=== PATIENT | female | born 1950 | race Caucasian/White ===

== ENCOUNTER 2022-04-08 14:52 | Outpatient (CLI) | payer MEDICARE, OTHER, SELFPAY ==
--- NOTE | 2022-04-08 16:00 | USCV_ITS ---
Rosaura Hodges Age: 71 Gender: F : 1950 Exam Date: 04/08/2022 15:22 Ordering Phys: Denise Amin Technologist: Mildred Bazan Exam Location: [facility] [place] Indication: CAD, pre op knee replacement BP: 120 / 70 HR: 54 Rhythm: Sinus Technical Quality: Adequate MEASUREMENTS (Male / Female) Normal Values 2D ECHO LV Diastolic Diameter PLAX 4.7 cm 4.2 - 5.9 / 3.9 - 5.3 cm LV Systolic Diameter PLAX 2.7 cm IVS Diastolic Thickness 0.8 cm 0.6 - 1.0 / 0.6 - 0.9 cm IVS Systolic Thickness 1.6 cm LVPW Diastolic Thickness 0.8 cm 0.6 - 1.0 / 0.6 - 0.9 cm LVPW Systolic Thickness 1.7 cm LVOT Diameter 2.1 cm LV Ejection Fraction 2D Teich 73.8 % LV Ejection Fraction MOD 2C 42.1 % LV Ejection Fraction 2C AL 40.0 % LA Width 2.4 cm LA Height 4.6 cm RA Width 2.8 cm RA Height 4.4 cm Aorta at Sinotubular Diameter 2.6 cm IVC Diameter 1.6 cm M-MODE MV E Point Septal Separation 0.6 cm DOPPLER AV Peak Velocity 150.0 cm/s LVOT Peak Velocity 91.0 cm/s AV Area Cont Eq vti 2.6 cm squared AV Area Cont Eq pk 2.1 cm squared MV Peak Velocity 126.0 cm/s MV Area PHT 3.3 cm squared Mitral E to A Ratio 0.8 MV E' Velocity 80.0 cm/s TR Peak Velocity 54.0 cm/s TR Peak Gradient 1.2 mmHg Right Atrial Pressure 3.0 mmHg Pulmonary Artery Systolic Pressu 4.2 mmHg PV Peak Velocity 97.0 cm/s RV Acceleration Time 0.2 s RV Ejection Time 0.4 s RV AcT/ET 0.4 FINDINGS Left Ventricle Normal left ventricular size and systolic function, EF 73 %. Grade I/IV diastolic dysfunction (abnormal relaxation filling pattern), normal to mildly elevated filling pressures. Right Ventricle The right ventricle is normal in size and function. Right Atrium The right atrium is normal in size. Left Atrium The left atrium is normal in size. Mitral Valve No gross abnormalities noted Aortic Valve Minimal calcification of the aortic valve annulus Tricuspid Valve No gross abnormalities noted Pulmonic Valve Mild pulmonary valve regurgitation. Pericardium Normal pericardium without effusion. Aorta Normal ascending aorta dimension. IVC The inferior vena cava appears normal. CONCLUSIONS Normal left ventricular size and systolic function, EF 73 %. Grade I/IV diastolic dysfunction (abnormal relaxation filling pattern), normal to mildly elevated filling pressures. Minimal calcification of the aortic valve annulus. No significant stenotic or regurgitant lesions. There is no pericardial effusion. There are no intracardiac masses. No similar previous studies are available for comparison Dr Dhara Harding MD [facility] (Electronically Signed) Final Date: 09 April 2022 11:52 S
== END 2022-04-08 14:53 | disposition home or self-care (01) ==
PROVIDERS: PCP Family Medicine; Visit Provider Nurse Practitioner Family
DX: I25.10 Atherosclerotic heart disease of native coronary artery without angina pectoris (principal); Z01.818 Encounter for other preprocedural examination; I70.0 Atherosclerosis of aorta
CPT/HCPCS: 93306

== ENCOUNTER → 2025-02-05 10:15 | Outpatient (BNVA) | payer MEDICARE, SELFPAY | PROVIDERS: PCP Family Medicine; Visit Provider Dermatology | DX: L82.1 Other seborrheic keratosis (principal); L81.4 Other melanin hyperpigmentation; L57.8 Other skin changes due to chronic exposure to nonionizing radiation; Z80.8 Family history of malignant neoplasm of other organs or systems; D48.5 Neoplasm of uncertain behavior of skin; L57.0 Actinic keratosis | CPT/HCPCS: 11102; 17000; 99203 ==